=== PATIENT | female | born 1975 | race Caucasian/White ===

== ENCOUNTER 2021-02-28 10:00 | Outpatient (CLI) | payer OTHER, SELFPAY ==
[~2021-02-28] VITALS: Ht 165.1 cm; Wt 113.4 kg
[2021-03-02] MEDS ORDERED: METF1000 PO (06:40)
[2021-03-02] MEDS ORDERED: BENA20TA9 PO (06:40)
[2021-03-02] MEDS ORDERED: SITA100T11 PO (06:40)
[2021-03-02] MEDS ORDERED: METO50TA7 PO (06:40)
[2021-03-02] MEDS ORDERED: LIP20 PO (06:40)
[2021-03-02 06:57] LABS: BILIRUBIN,URINE NEGATIVE (NEGATIVE); CLARITY/URINE SL CLOUDY (CLEAR); COLOR,URINE YELLOW (YELLOW); GLUCOSE,URINE TRACE (NEGATIVE); KETONES,URINE TRACE (NEGATIVE); LEUKOCYTE ESTERASE ,URINE 2+ (NEGATIVE); NITRITE, URINE NEGATIVE (NEGATIVE); PROTEIN URINE TRACE (NEGATIVE); UROBILINOGEN,URINE 0.2 (0.2-1.0)
[2021-03-02 07:00] LABS: HCG,QUAL RESULT NEGATIVE (NEGATIVE)
[2021-03-02] MEDS ORDERED: CEFAZOLIN SOD 2 GM in D5W 50 ML IV ONE (07:00)
[2021-03-02 07:01] LABS: BLOOD, URINE TRACE (NEGATIVE)
[2021-03-02 07:04] LABS: BASOPHILS % (AUTO) 0.4 % (0.0-2.0); EOSINOPHILS # (AUTO) 0.1 K/uL (0.0-0.4); EOSINOPHILS % (AUTO) 1.2 % (0.0-4.0); HEMATOCRIT 35.3 % (36-48); HEMOGLOBIN 11.9 g/dL (12.0-16.0); LYMPHOCYTES # (AUTO) 2.9 K/uL (1.0-5.5); LYMPHOCYTES % (AUTO) 26.6 % (20.5-51.5); MEAN CORPUSCULAR HEMOGLOBIN 30 pg (27-31); MEAN CORPUSCULAR HGB CONC 34 % (32-36); MEAN CORPUSCULAR VOLUME 89 fL (79.0-98.0); MONOCYTES # (AUTO) 0.7 K/uL (0.0-1.0); MONOCYTES % (AUTO) 6.9 % (1.7-9.3); NEUTROPHILS # (AUTO) 7.1 K/uL (1.8-7.7); NEUTROPHILS % (AUTO) 64.9 % (40.0-70.0); PLATELET COUNT (AUTO) 296 K/uL (130-430); RED BLOOD CELL COUNT(AUTO) 3.95 MIL/uL (4.2-6.2); RED CELL DISTRIBUTION WIDTH 13.5 % (9.0-15.0); WHITE BLOOD COUNT (AUTO) 10.9 K/uL (4.8-10.8)
[2021-03-02 07:18] VITALS: BP_SYST 135
[2021-03-02 07:21] LABS: BACTERIA,URINE MODERATE /HPF (None Seen); WBC,URINE 20-50 /HPF (0-3)
[2021-03-02 07:22] LABS: CALCIUM OXALATE CRYSTALS,UR 0-10 /HPF (None Seen)
[2021-03-02 07:37] LABS: CALCIUM 9.2 mg/dL (8.4-11.0); CREATININE 0.83 mg/dL (0.55-1.30); POTASSIUM 4.2 mmol/L (3.5-5.1)
[2021-03-02 07:42] LABS: ALBUMIN 3.3 g/dL (3.4-4.8); TOTAL BILIRUBIN 0.6 mg/dL (0.0-1.0)
== END 2021-02-28 11:00 | disposition home or self-care (01) ==
LOC: SLB 10:00 → SDS 03-02 06:10 → SMU 03-02 06:11 → SDS 03-02 06:11 → EDSTATUS 03-02 07:30 → SDS 03-02 07:40 → SMU 03-02 07:40
PROVIDERS: ATTEND Obstetrics & Gynecology
DX: Z20.822 Contact with and (suspected) exposure to COVID-19 (principal); N92.0 Excessive and frequent menstruation with regular cycle; D25.9 Leiomyoma of uterus, unspecified; N83.209 Unspecified ovarian cyst, unspecified side; Z53.8 Procedure and treatment not carried out for other reasons
CPT/HCPCS: 36415; 71045; 80053; 81000; 82962; 84703; 85025; 86886; 86900; 86901; 87081; 93005; J0690; J7060

== ENCOUNTER 2021-05-26 06:22 | Day surgery (SDC) | payer OTHER, SELFPAY ==
[2021-05-23 10:53] LABS: BASOPHILS % (AUTO) 0.5 % (0.0-2.0); EOSINOPHILS # (AUTO) 0.1 K/uL (0.0-0.4); EOSINOPHILS % (AUTO) 1.4 % (0.0-4.0); HEMATOCRIT 37.9 % (36-48); HEMOGLOBIN 12.3 g/dL (12.0-16.0); LYMPHOCYTES # (AUTO) 2.1 K/uL (1.0-5.5); LYMPHOCYTES % (AUTO) 29.3 % (20.5-51.5); MEAN CORPUSCULAR HEMOGLOBIN 29 pg (27-31); MEAN CORPUSCULAR HGB CONC 33 % (32-36); MEAN CORPUSCULAR VOLUME 90 fL (79.0-98.0); MONOCYTES # (AUTO) 0.5 K/uL (0.0-1.0); MONOCYTES % (AUTO) 7.2 % (1.7-9.3); NEUTROPHILS # (AUTO) 4.3 K/uL (1.8-7.7); NEUTROPHILS % (AUTO) 61.6 % (40.0-70.0); PLATELET COUNT (AUTO) 337 K/uL (130-430); RED CELL DISTRIBUTION WIDTH 13.5 % (9.0-15.0); WHITE BLOOD COUNT (AUTO) 7.1 K/uL (4.8-10.8)
[2021-05-23 11:13] LABS: ALBUMIN 3.7 g/dL (3.4-4.8); CALCIUM 8.5 mg/dL (8.4-11.0); CREATININE 0.75 mg/dL (0.55-1.30); POTASSIUM 4.5 mmol/L (3.5-5.1); TOTAL BILIRUBIN 0.8 mg/dL (0.0-1.0)
[~2021-05-26] VITALS: Ht 165.1 cm; Wt 102.1 kg
[~2021-05-26 06:22] MED LIST: BENA20TA9 PO; LIP20 PO; METF1000 PO; METO50TA7 PO; SITA100T11 PO
[2021-05-26 06:58] LABS: BILIRUBIN,URINE NEGATIVE (NEGATIVE); BLOOD, URINE NEGATIVE (NEGATIVE); CLARITY/URINE CLEAR (CLEAR); COLOR,URINE YELLOW (YELLOW); GLUCOSE,URINE NEGATIVE (NEGATIVE); KETONES,URINE 2+ (NEGATIVE); LEUKOCYTE ESTERASE ,URINE NEGATIVE (NEGATIVE); NITRITE, URINE NEGATIVE (NEGATIVE); PH,URINE 5.5 (5.0-8.0); PROTEIN URINE NEGATIVE (NEGATIVE); UROBILINOGEN,URINE 0.2 (0.2-1.0)
[2021-05-26] MEDS ORDERED: CEFAZOLIN 2 GM IVPB PREMIX 50 ML IV ONE (07:00)
[2021-05-26] MEDS ORDERED: MIDAZOLAM HCL 5 MG/5 ML VIAL IVP ONE (07:30)
[2021-05-26] MEDS ORDERED: DIPHENHYDRAMINE INJ 50 MG/ML VIAL IVP ONE (07:30)
[2021-05-26] MEDS ORDERED: PROPOFOL 200MG/ 20ML VIAL (DIPRIVAN) IV ONE (07:30)
[2021-05-26] MEDS ORDERED: PHENYLEPHRINE HCL 10 MG/ML VIAL (NEOSYNEPHRINE) IV ONE (07:30)
[2021-05-26] MEDS ORDERED: WATER FOR IRRIGATION,STERILE 1,000 ML IRRIG.SOLN IR ONE (07:30)
[2021-05-26] MEDS ORDERED: HYDROmorphone 2 MG/ML VIAL IVP ONE (07:30)
[2021-05-26] MEDS ORDERED: BUPIVACAINE /EPINEPHRINE/PF 0.5% 30 ML VIAL INJ ONE (07:30)
[2021-05-26] MEDS ORDERED: ROCURONIUM BROMIDE 10 MG/ML (ZEMURON) IV ONE (07:30)
[2021-05-26] MEDS ORDERED: ONDANSETRON HCL 4 MG/2 ML VIAL IVP ONE (07:30)
[2021-05-26] MEDS ORDERED: NS 1000 ML IV.SOLN IV ONE (07:30)
[2021-05-26] MEDS ORDERED: METOCLOPRAMIDE HCL 10 MG/2 ML VIAL IVP ONE (07:30)
[2021-05-26] MEDS ORDERED: GLYCOPYRROLATE 0.2 MG/ML VIAL IJ ONE (07:30)
[2021-05-26] MEDS ORDERED: SEVOFLURANE 15 MIN GAS INH ONE (07:30)
[2021-05-26] MEDS ORDERED: KETOROLAC TROMETHAMINE 30 MG VIAL IVP ONE (07:30)
[2021-05-26] MEDS ORDERED: LR 1,000 ML IV.SOLN IV ONE (07:30)
[2021-05-26] MEDS ORDERED: DEXAMETHASONE SOD PHOSPHATE 4 MG/ML VIAL IVP ONE (07:30)
[2021-05-26] MEDS ORDERED: ONDANSETRON HCL 4 MG/2 ML VIAL IVP PRN ×2 (11:45→12:00)
[2021-05-26] MEDS ORDERED: ONDANSETRON HCL 4 MG/2 ML VIAL IM PRN (11:45)
[2021-05-26] MEDS ORDERED: OXYCODONE/ACETAMINOPHEN 5-325 TABLET PO PRN ×2 (11:45)
[2021-05-26] MEDS ORDERED: KETOROLAC TROMETHAMINE 10 MG TABLET (TORADOL) PO PRN (11:45)
[2021-05-26] MEDS ORDERED: METOCLOPRAMIDE HCL 10 MG/2 ML VIAL IVP PRN (12:00)
[2021-05-26] MEDS ORDERED: HYDROmorphone 2 MG/ML VIAL IVP PRN (12:00)
[2021-05-26] MEDS ORDERED: HYDROmorphone 1 MG/ML INJ. CARTRIDGE IVP PRN ×2 (12:00)
[2021-05-26] MEDS ORDERED: LIP20 PO (18:10)
[2021-05-26] MEDS ORDERED: METF-833 PO (18:10)
[2021-05-26] MEDS ORDERED: METO-442 PO (18:10)
[2021-05-26] MEDS ORDERED: SITA25TA3 PO (18:10)
[2021-05-26] MEDS ORDERED: BENA10TA73 PO (18:10)
[2021-05-26 20:01] VITALS: BP_SYST 139
--- NOTE | 2021-05-26 20:05 | NUR ---
PATIENT SITTING UP, VITAL SIGNS STABLE. POST OP VITALS STARTED. NO SIGNS OF DISTRESS NOTED. CALL LIGHT WITHIN REACH, FAMILY AT BEDSIDE, BED ALARM ON, BED AT LOWEST POSITION, BED LOCKED. FALL, RESPIRATORY, ASPIRATION, AND SAFETY PRECAUTION IN PLACE. DISCUSSED PLAN OF CARE WITH PATIENT, WILL CONTINUE TO MONITOR. PATIENT REQUESTS THE ROOM IS TOO COLD AND ASKING TO BE DISCHARGED SOON POSSIBLE.
--- NOTE | 2021-05-26 21:41 | NUR ---
SPOKE TO DR. TRUJILLO, EXPLAINED THAT PATIENT WOULD LIKE TO BE DISCHARGED TONIGHT. EXPLAINED THAT PATIENT'S VITALS ARE STABLE, BLADDER SCANNER NOTED 222 ML OF URINE. PATIENT HAD VOIDED AT PACU BEFORE ADMISSION. MD ORDERS DISCHARGE HOME REGARDLESS OF IF PATIENT VOIDS OR NOT. Addendum: 05/27/21 at 0552 by Pablo Coates RN PATIENT STATES SHE WILL WALK BEFORE GOING TO THE RESTROOM AT THIS TIME. PATIENT HAD VOIDED AT SMALL AMOUNT AT PACU, PATIENT STATED THAT IT WAS MORE THAN THE AMOUNT THEY HAD COLLECTED. MD ORDERED TO DISCHARGE PATIENT HOME TONNADER, MD ORDERED NO NEED TO WAIT FOR THE PATIENT TO VOID. WILL NOTIFY PATIENT.
[2021-05-26 21:53] VITALS: BP_SYST 140
== END 2021-05-26 22:10 | disposition home or self-care (01) ==
LOC: SDS 06:22 → SMU 06:23 → SDS 22:10
PROVIDERS: ATTEND Obstetrics & Gynecology
DX: N92.0 Excessive and frequent menstruation with regular cycle (principal); D25.9 Leiomyoma of uterus, unspecified; I10 Essential (primary) hypertension; E11.9 Type 2 diabetes mellitus without complications; E78.00 Pure hypercholesterolemia, unspecified; Z79.01 Long term (current) use of anticoagulants; Z79.899 Other long term (current) drug therapy
CPT/HCPCS: 36415 ×2; 58544; 80053; 81003; 82962; 84702; 85025; 86886; 86900; 86901; 87081; 88307; 93005; 96379; C1727; J0690; S2900; U0003; E0190; J1100; J1170; J1200; J1885; J2250; J2370; J2405; J2704; J2765; J3490; J7030; J7120